=== PATIENT | female | born 1995 | race African-American/Black ===

== ENCOUNTER 2017-01-11 07:36 | Emergency (ER) | payer BC ==
[2017-01-11] MEDS ORDERED: IV NORMAL SALINE 1,000ML 1,000 ML IV ONE ×2 (08:00→08:45)
[2017-01-11] MEDS ORDERED: DICY10CA53 PO (08:06)
[2017-01-11] MEDS ORDERED: LOPE2CAP PO (08:06)
[2017-01-11] MEDS ORDERED: ONDA4TAB7 PO (08:06)
--- NOTE | 2017-01-11 08:07 | PHYS DOC ---
Past History Past Medical History: No Pertinent History Alcohol Use: None Drug Use: None Adult General Chief Complaint Chief Complaint: NAUSEA/VOMITING/DIARRHEA HPI HPI 21-year-old female presenting to the emergency department today with nausea vomiting and diarrhea for the past 3 days. She reports watery nonbloody stool. Her vomitus is nonbloody and nonbilious. She denies abdominal pain but does has general cramping sensation of her bowels. Location GI tract. Duration intermittent. No alleviating or exacerbating factors present. Otherwise healthy individual. She reports her last menstrual period during the beginning of December. She denies vaginal bleeding fevers or chills. Review of systems was negative for chest pain shortness of breath fevers chills headache. All other review of systems is negative unless otherwise noted in history of present illness. Pertinent physical exam findings showed a soft nontender abdomen. Nontender appendix or gallbladder. ED course. 21-year-old female presenting to the emergency department with nausea vomiting and diarrhea. Patient was mildly tachycardic on triage vital signs. She is given IV fluids. Likely secondary dehydration and anemia. Abdomen was soft and nontender. Blood work obtained. Urinalysis obtained. test obtained. CBC shows mild leukocytosis which is nonspecific. Hemoglobin came back low at just above 7. After further clarification with the patient she has been having chronic heavy menstrual bleeding for some time now. She has at one point been placed on iron supplementation and seemed gynecology and reports a history of fairly low hemoglobin counts. No history obtainable under my EMR this point. I had a long risk-benefit discussion with the patient and her grandmother about transfusion threshold's. Collectively, we decided to initiate oral iron supplementation and have them follow up with their primary care physician in 2 days for repeat hemoglobin testing. I gave her very specific return precautions. I offered them hospitalization for transfusion and further evaluation. We did perform a rectal exam to ensure that there was no GI bleeding involved. This was negative. The patient was then discharged home in stable condition to follow up with their primary care physician over the next 2- 3 days. They were to return if their symptoms worsened or if they were concerned for any reason. [id number] discharge instructions and return precautions were given. Patient and grandmother's questions were answered to their satisfaction. Patient and grandmother are comfortable plan. Review of Systems Review of Systems SEE ABOVE. Current Medications Current Medications Current Medications Medications (Trade) Dose Ordered Sig/Braden Start Time Stop Time Status Last Admin Dose Admin Sodium Chloride 1,000 ml @ 1,000 mls/hr 1X ONCE 01/11/17 08:00 01/11/17 08:59 Allergies Allergies Allergies Coded Allergies Type Severity Reaction Last Updated Verified No Known Drug Allergies 01/11/17 No Physical Exam Physical Exam Constitutional: Well developed, well nourished, no acute distress, non-toxic appearance. HENT: Normocephalic, atraumatic, bilateral external ears normal, oropharynx moist, no oral exudates, nose normal. [] Eyes: PERRLA, EOMI, conjunctiva normal, no discharge. Neck: Normal range of motion, no tenderness, supple, no stridor. [] Cardiovascular:Heart rate regular rhythm, no murmur Lungs & Thorax: Bilateral breath sounds clear to auscultation [] Abdomen: Soft nontender abdomen without rebound tenderness or guarding present. Negative McBurneys point. Negative Petty sign. No ecchymosis present. Skin: Warm, dry, no erythema, no rash. Back: No tenderness, no CVA tenderness. [] Extremities: No tenderness, no cyanosis, no clubbing, ROM intact, no edema. [] Neurologic: Alert and oriented X 3, normal motor function, normal sensory function, no focal deficits noted. [] Psychologic: Affect normal, judgement normal, mood normal. [] Current Patient Data Vital Signs Vital Signs Date Time Temp Pulse Resp B/P (MAP) Pulse Ox O2 Delivery O2 Flow Rate FiO2 01/11/17 07:40 98.7 118 16 98 Room Air EKG EKG [] Radiology/Procedures Radiology/Procedures [] Course & Med Decision Making Course & Med Decision Making Pertinent Labs and Imaging studies reviewed. (See chart for details) [] Dragon Disclaimer Dragon Disclaimer This chart was dictated in whole or in part using Voice Recognition software in a busy, high-work load, and often noisy Emergency Department environment. It may contain unintended and wholly unrecognized errors or omissions. Departure Departure: Impression: Primary Impression: Nausea vomiting and diarrhea Additional Impressions: Anemia Iron deficiency Disposition: 01 HOME, SELF-CARE Condition: STABLE Referrals: SUNITA GARCIA MD Patient Instructions: Diarrhea, Nausea and Vomiting Additional Instructions: Thank you for allowing us to participate in your care today. Followup with your primary care physician in 3 days if your symptoms do not improve. If you do not have a primary care provider you can ask for a list of our primary care providers. Return to the emergency department you have any new or concerning findings. This should be evaluated by the primary care physician and any necessary consulting services for continued management within a few days after discharge. Return to emergency room if you have any new or concerning symptoms including but not limited to fever, chills, nausea, vomiting, intractable pain, any new rashes, chest pain, shortness of air, uncontrolled bleeding, difficulty breathing, and/or vision loss. Scripts Ferrous Sulfate (FERROUS SULFATE) 325 Mg Tablet 1 TAB PO DAILY, #7 TAB 0 Refills Prov: JANE FREEMAN MD 01/11/17 Loperamide Hcl (LOPERAMIDE) 2 Mg Capsule 2 MG PO PRN TID Y for DIARRHEA for 2 Days, CAP Prov: JANE FREEMAN MD 01/11/17 Dicyclomine Hcl (BENTYL) 10 Mg Capsule 10 MG PO PRN TID Y for SEE COMMENTS for 3 Days, CAP Prov: JANE FREEMAN MD 01/11/17 Ondansetron Hcl (ZOFRAN) 4 Mg Tablet 1 TAB PO PRN Q6HRS Y for NAUSEA, #6 TAB Prov: JANE FREEMAN MD 01/11/17 Problem Qualifiers JANE FREEMAN MD Jan 11, 2017 08:07
[2017-01-11 08:30] LABS: PREG TEST PT QUAL NEGATIVE (NEG)
[2017-01-11 08:32] LABS: ALBUMIN 3.6 g/dL (3.4-5.0); CALCIUM 9.1 mg/dL (8.5-10.1); CREATININE 0.8 mg/dL (0.6-1.0); DIRECT BILIRUBIN 0.1 mg/dL (0.0-0.2); GFR 90.5; POTASSIUM 3.9 mmol/L (3.5-5.1); TOTAL BILIRUBIN 0.4 mg/dL (0.2-1.0); TOTAL PROTEIN 8.7 g/dL (6.4-8.2)
[2017-01-11 08:47] LABS: BASO # 0.1 x10^3/uL (0.0-0.2); BASO % 0 % (0-3); EOS # 0.3 x10^3/uL (0.0-0.7); EOS % 2 % (0-3); HEMATOCRIT 25.5 % (36.0-47.0); HEMOGLOBIN 7.3 g/dL (12.0-15.5); LYMPH # 2.9 x10^3/uL (1.0-4.8); LYMPH % 21 % (24-48); MEAN CORPUSCULAR HEMOGLOBIN 15 pg (25-35); MEAN CORPUSCULAR HGB CONC 29 g/dL (31-37); MEAN CORPUSCULAR VOLUME 53 fL (79-100); MONO # 0.7 x10^3/uL (0.0-1.1); MONO % 5 % (0-9); NEUT # 10.1 x10^3uL (1.8-7.7); NEUT % 73 % (31-73); PLATELET COUNT 466 x10^3/uL (140-400); RED BLOOD COUNT 4.82 x10^6/uL (3.50-5.40); RED CELL DISTRIBUTION WIDTH 18.6 % (11.5-14.5)
[2017-01-11 09:14] LABS: BACTERIA,URINE 0 /HPF (0-FEW); BILIRUBIN,URINE NEG (NEG); CLARITY,URINE CLEAR; COLOR,URINE YELLOW; GLUCOSE,URINE NEG (NEG); NITRITE,URINE NEG (NEG); RBC,URINE RARE /HPF (0-2); SQUAMOUS EPITHELIAL CELL,UR OCC /LPF; UROBILINOGEN,URINE 0.2 mg/dL (0.2 mg/dL); WBC,URINE OCC /HPF (0-4)
[2017-01-11 09:44] LABS: ANISOCYTOSIS MARKED; HYPOCHROMIA MOD; MICROCYTOSIS MARKED; PLATELET CLUMP PRESENT; PLT ESTIMATE INCREASED (ADEQUATE); POLYCHROMASIA MOD; SPHEROCYTES OCC
[2017-01-11 09:45] LABS: OVALOCYTES OCC; TARGET CELLS OCC; TEAR DROP CELLS FEW
[2017-01-11] MEDS ORDERED: FERR-26 PO (11:25)
[2017-01-11 12:33] LABS: FECAL OB PT NEGATIVE (NEG)
[2017-01-11 12:50] VITALS: BP 144/71
== END 2017-01-11 12:55 | disposition home or self-care (01) ==
LOC: ER 07:36
DX: R11.2 Nausea with vomiting, unspecified (principal); R19.7 Diarrhea, unspecified; D50.9 Iron deficiency anemia, unspecified
CPT/HCPCS: 36415; 80048; 80076; 81001; 81025; 82274; 83690; 84703; 85008; 85027; 96360; 99284-25; J7030

== ENCOUNTER 2020-02-19 09:16 | Emergency (ER) | payer BC, OTHER ==
[~2020-02-19] VITALS: Ht 165.1 cm; Wt 123.7 kg
[2020-02-19 09:16] VITALS: BP 145/77
[~2020-02-19 09:16] MED LIST: DICY10CA53 PO; FERR325T14 PO; LOPE2CAP PO; ONDA4TAB7 PO
--- NOTE | 2020-02-19 10:01 | PHYS DOC ---
Past History Past Medical History: Anemia Past Surgical History: No Surgical History Alcohol Use: None Drug Use: None General Adult EDM: Chief Complaint: BACK PAIN OR INJURY HPI: HPI: Patient is a 24-year-old female who presented to ER today for evaluation of low back pain after she slipped and fell at work yesterday. Patient denies any abdominal pain, no bowel or bladder incontinence, no weakness or numbness in her lower extremity. Patient says she is not sexually active so she is not . Review of Systems: Review of Systems: Constitutional: Denies fever or chills Eyes: Denies change in visual acuity HENT: Denies nasal congestion or sore throat Respiratory: Denies cough or shortness of breath Cardiovascular: Denies chest pain or edema GI: Denies abdominal pain, nausea, vomiting, bloody stools or diarrhea : Denies dysuria Musculoskeletal: Positive for low back pain Integument: Denies rash Neurologic: Denies headache, focal weakness or sensory changes Endocrine: Denies polyuria or polydipsia Lymphatic: Denies swollen glands Psychiatric: Denies depression or anxiety Heart Score: Risk Factors: Risk Factors: DM, Current or recent (<one month) smoker, HTN, HLP, family history of CAD, obesity. Risk Scores: Score 0 - 3: 2.5% MACE over next 6 weeks - Discharge Home Score 4 - 6: 20.3% MACE over next 6 weeks - Admit for Clinical Observation Score 7 - 10: 72.7% MACE over next 6 weeks - Early Invasive Strategies Allergies: Allergies: Allergies Coded Allergies Type Severity Reaction Last Updated Verified No Known Drug Allergies 01/11/17 No Physical Exam: PE: Constitutional: Well developed, well nourished, no acute distress, non-toxic appearance. [] HENT: Normocephalic, atraumatic, bilateral external ears normal, oropharynx moist, no oral exudates, nose normal. [] Eyes: PERRLA, EOMI, conjunctiva normal, no discharge. [] Neck: Normal range of motion, no tenderness, supple, no stridor. [] Cardiovascular:Heart rate regular rhythm, no murmur [] Lungs & Thorax: Bilateral breath sounds clear to auscultation [] Abdomen: Bowel sounds normal, soft, no tenderness, no masses, no pulsatile masses. [] Skin: Warm, dry, no erythema, no rash. [] Back: No tenderness, no CVA tenderness. [] Extremities: No tenderness, no cyanosis, no clubbing, ROM intact, no edema. [] Neurologic: Alert and oriented X 3, normal motor function, normal sensory function, no focal deficits noted. Good bilateral patellar reflexes Psychologic: Affect normal, judgement normal, mood normal. [] Current Patient Data: Vital Signs: Vital Signs Date Time Temp Pulse Resp B/P (MAP) Pulse Ox O2 Delivery O2 Flow Rate FiO2 02/19/20 09:16 98.6 89 16 145/77 (99) 98 Room Air EKG: EKG: [] Radiology/Procedures: Radiology/Procedures: [][place] [id number] IMAGING REPORT Signed PATIENT: MAMIE CLARKACCOUNT: [id number] : 1995 LOCATION: ER AGE: 24 SEX: F EXAM STATUS: REG ER ORD. PHYSICIAN: SUNITA MARCUS DO REASON: lower back pain PROCEDURE: LUMBAR SPINE 2-3V Lumbar spine AP and lateral views 02/19/2020. Reason for exam: Low back pain. No history of trauma is given. Alignment is normal. There is no loss of vertebral body height or other evidence for fracture. Intervertebral discs are not narrowed. No destructive process is seen. IMPRESSION: No apparent abnormality in the lumbar spine. Electronically signed by: Jazmín Jacobo Jr., MD (02/19/2020 10:17 AM) [id number] DICTATED AND SIGNED BY: JAZMÍN JACOBO Jr, MD DATE: 02/19/20 1017 CC: CORI GRAVES MD; SUNITA MARCUS DO ~ Course & Med Decision Making: Course & Med Decision Making Pertinent Labs and Imaging studies reviewed. (See chart for details) Patient is a 24-year-old female who was evaluated in the ER due to low back pain after she slipped and fell at work. X-ray her lumbar spine did not show any acute problem. Patient will be discharged home, she will need to follow-up with her family doctor for reevaluation. Dragon Disclaimer: Dragon Disclaimer: This electronic medical record was generated, in whole or in part, using a voice recognition dictation system. Departure Departure: Impression: Primary Impression: Sprain lumbar region Additional Impression: Low back strain Disposition: HOME/RESIDENCE PRIOR TO ADM Condition: STABLE Referrals: CORI GRAVES MD (PCP) please call your family doctor for follow up as needed. Patient Instructions: Low Back Strain with [facility] Additional Instructions: Thank you for visiting our Emergency Department. We appreciate you trusting us with your care. If any additional problems come up don't hesitate to return to visit us. Please follow up with your primary care provider so they can plan additional care if needed and know about the problem that you had. If symptoms worsen come back to the Emergency Department. Any concerning symptoms that start such as chest pain, shortness of air, weakness or numbness on one side of the body, running high fevers or any other concerning symptoms return to the ER. Justification of Admission: Justification of Admission: Justification of Admission Dx: N/A SUNITA MARCUS DO Feb 19, 2020 10:01
--- NOTE | 2020-02-19 10:20 | RAD ---
Lumbar spine AP and lateral views 02/19/2020. Reason for exam: Low back pain. No history of trauma is given. Alignment is normal. There is no loss of vertebral body height or other evidence for fracture. Intervertebral discs are not narrowed. No destructive process is seen. IMPRESSION: No apparent abnormality in the lumbar spine. Electronically signed by: Ryan Jacobo Jr., MD (02/19/2020 10:17 AM) [id number]
== END 2020-02-19 10:35 | disposition home or self-care (01) ==
LOC: ER 09:16
DX: S33.5XXA Sprain of ligaments of lumbar spine, initial encounter (principal); S39.012A Strain of muscle, fascia and tendon of lower back, initial encounter; Z86.2 Personal history of diseases of the blood and blood-forming organs and certain disorders involving the immune mechanism; W01.0XXA Fall on same level from slipping, tripping and stumbling without subsequent striking against object, initial encounter; Y93.89 Activity, other specified; Y92.89 Other specified places as the place of occurrence of the external cause; Y99.0 Civilian activity done for income or pay
CPT/HCPCS: 72100; 99283

== ENCOUNTER 2021-03-23 23:43 | Emergency (ER) | payer OTHER, BC ==
[~2021-03-23] VITALS: Ht 160 cm; Wt 135.8 kg
[2021-03-23 23:51] VITALS: BP 134/70
--- NOTE | 2021-03-24 00:11 | PHYS DOC ---
Past History Past Medical History: Anemia Past Surgical History: Appendectomy Alcohol Use: None Drug Use: None General Adult EDM: Chief Complaint: FINGER INJURY HPI: HPI: ".. I picked up hot cup soup... and it spaashed against my thumb.. on Lt. it was about 5:30..." it s got a blister now... " Patient is a 25 year old female who presents with above hx and complaint 1 cm size blister to left thumb tip. Distal neurovascular intact. Patient up-to-date with vaccinations. No recent travel. No sick ill contacts. Normally healthy. Patient is right-hand dominant. Patient works at the [employer] at the [employer]. Review of Systems: Review of Systems: Constitutional: Denies fever or chills Eyes: Denies change in visual acuity HENT: Denies nasal congestion or sore throat Respiratory: Denies cough or shortness of breath Cardiovascular: Denies chest pain or edema GI: Denies abdominal pain, nausea, vomiting, bloody stools or diarrhea : Denies dysuria Musculoskeletal: Denies back pain or joint pain Integument: Complains of scalding 1 cm burn left tip thumb Neurologic: Denies headache, focal weakness or sensory changes Endocrine: Denies polyuria or polydipsia Lymphatic: Denies swollen glands Psychiatric: Denies depression or anxiety Family History: Family History: Noncontributory to presentation. Current Medications: Current Meds: Current Medications Medications (Trade) Dose Ordered Sig/Braden Start Time Stop Time Status Last Admin Dose Admin Diphtheria/ Pertussis/Tetanus Vacc (ADACEL TDap SYRINGE) 0.5 ml ONCE ONCE 03/24/21 00:30 03/24/21 00:31 Allergies: Allergies: Allergies Coded Allergies Type Severity Reaction Last Updated Verified No Known Drug Allergies 01/11/17 No Physical Exam: PE: Constitutional: Well developed, well nourished, no acute distress, non-toxic ap pearance. [] HENT: Normocephalic, atraumatic, bilateral external ears normal, oropharynx moist, no oral exudates, nose normal. [] Eyes: PERRLA, EOMI, conjunctiva normal, no discharge. [] Neck: Normal range of motion, no tenderness, supple, no stridor. [] Cardiovascular:Heart rate regular rhythm, no murmur [] Lungs & Thorax: Bilateral breath sounds equal at apex on auscultation [] Abdomen: Bowel sounds normal, soft, no tenderness, no masses, no pulsatile masses. Obese. Skin: Warm, dry, no erythema, no rash. Second-degree burn left thumb tip Back: No tenderness, no CVA tenderness. [] Extremities: No tenderness, no cyanosis, no clubbing, ROM intact, no edema. [] Neurologic: Alert and oriented X 3, normal motor function, normal sensory function, no focal deficits noted. [] Psychologic: Affect anxious, judgement normal, mood normal. [] Current Patient Data: Vital Signs: Vital Signs Date Time Temp Pulse Resp B/P (MAP) Pulse Ox O2 Delivery O2 Flow Rate FiO2 03/23/21 23:51 98.5 98 18 134/70 98 EKG: EKG: [] Radiology/Procedures: Radiology/Procedures: [] Heart Score: C/O Chest Pain: N/A Risk Factors: Risk Factors: DM, Current or recent (<one month) smoker, HTN, HLP, family history of CAD, obesity. Risk Scores: Score 0 - 3: 2.5% MACE over next 6 weeks - Discharge Home Score 4 - 6: 20.3% MACE over next 6 weeks - Admit for Clinical Observation Score 7 - 10: 72.7% MACE over next 6 weeks - Early Invasive Strategies Course & Med Decision Making: Course & Med Decision Making Pertinent Labs and Imaging studies reviewed. (See chart for details) Patient to keep the blister covered. Polysporin 4 times a day. Tylenol and ibuprofen for pain. Follow-up primary care. Follow-up Workmen's Comp. Return if any concerns. 1. Lt. Thumb 2nd degree burn 1 x1 cm [] Dragon Disclaimer: Dragon Disclaimer: This electronic medical record was generated, in whole or in part, using a voice recognition dictation system. Departure Departure: Referrals: CORI GRAVES MD (PCP) Candis Disclaimer This chart was dictated in whole or in part using Voice Recognition software in a busy, high-work load, and often noisy Emergency Department environment. It may contain unintended and wholly unrecognized errors or omissions. SARA MARKHAM MD Mar 24, 2021 00:11
[2021-03-24] MEDS ORDERED: DIPH,PERTUSS(ACELL),TET VAC/PF 0.5 ML SYRINGE. VAX IM ONE (00:30)
[2021-03-24] MEDS ORDERED: MUPIROCIN 2% TOPICAL OINTMENT 22GM TUBE. TP ONE (01:00)
== END 2021-03-24 00:40 | disposition home or self-care (01) ==
LOC: ER 23:43
DX: T23.212A Burn of second degree of left thumb (nail), initial encounter (principal); Z86.2 Personal history of diseases of the blood and blood-forming organs and certain disorders involving the immune mechanism; X10.0XXA Contact with hot drinks, initial encounter; Y93.89 Activity, other specified; Y92.89 Other specified places as the place of occurrence of the external cause; Y99.8 Other external cause status
CPT/HCPCS: 90471; 90715; 99283

== ENCOUNTER 2021-04-24 15:34 | Emergency (ER) | payer BC, OTHER ==
[~2021-04-24] VITALS: Ht 160 cm; Wt 125.5 kg
--- NOTE | 2021-04-24 15:57 | PHYS DOC ---
Past History Past Medical History: Anemia (SEMAJ FLORES APRN) Past Surgical History: Appendectomy (SEMAJ FLORES APRN) Alcohol Use: Occasionally Drug Use: None (SEMAJ FLORES APRN) General Adult EDM: Chief Complaint: COUGH HPI: HPI: Patient is a 25-year-old female who presents to the ER for shortness of breath and cough. Patient was diagnosed with COVID-19 2 weeks ago. She reports that the cough is severe that at times it does cause vomiting. Patient is also reporting intermittent fevers. She denies any current vomiting, chest pain, loss of taste or smell. Patient's heart rate slightly elevated at 125. She is afebrile at this time. O2 saturations are 92 to 93% on room air. (SEMAJ FLORES APRN) Review of Systems: Review of Systems: 14 body systems of the review of systems have been reviewed. See HPI for pertinent positive and negative responses, otherwise all other systems are negative, nonpertinent or noncontributory (SEMAJ FLORES APRN) Current Medications: Current Meds: Current Medications Medications (Trade) Dose Ordered Sig/Braden Start Time Stop Time Status Last Admin Dose Admin Dexamethasone Sodium Phosphate (Decadron) 10 mg 1X ONCE 04/24/21 16:00 04/24/21 16:01 UNV Sodium Chloride 1,000 ml @ 1,000 mls/hr 1X ONCE 04/24/21 16:00 04/24/21 16:59 UNV (SEMAJ FLORES APRN) Allergies: Allergies: Allergies Coded Allergies Type Severity Reaction Last Updated Verified No Known Drug Allergies 01/11/17 No (SEMAJ FLORES APRN) Physical Exam: PE: Constitutional: Well developed, well nourished, no acute distress, non-toxic appearance. [] HENT: Normocephalic, atraumatic, bilateral external ears normal, oropharynx moist, no oral exudates, nose normal. [] Eyes: PERRL, EOMI, conjunctiva normal, no discharge. [] Neck: Normal range of motion, no stridor Cardiovascular:Heart rate regular rhythm, no murmur [] Lungs & Thorax: Bilateral breath sounds clear to auscultation [] Abdomen: Bowel sounds normal, soft, no tenderness, obese, no masses, no pulsatile masses. [] Skin: Warm, dry, no erythema, no rash. [] Back: Normal range of motion Extremities: No tenderness, no cyanosis, no clubbing, ROM intact, no edema. [] Neurologic: Alert and oriented X 3, normal motor function, normal sensory function, no focal deficits noted. [] Psychologic: Affect normal, judgement normal, mood normal. [] (SEMAJ FLORES APRN) Current Patient Data: Labs: Laboratory Tests Test 04/24/21 16:25 White Blood Count 6.5 x10^3/uL Red Blood Count 5.27 x10^6/uL Hemoglobin 11.0 g/dL Hematocrit 35.2 % Mean Corpuscular Volume 67 fL Mean Corpuscular Hemoglobin 21 pg Mean Corpuscular Hemoglobin Concent 31 g/dL Red Cell Distribution Width 17.2 % Platelet Count 306 x10^3/uL Neutrophils (%) (Auto) 58 % Lymphocytes (%) (Auto) 27 % Monocytes (%) (Auto) 10 % Eosinophils (%) (Auto) 3 % Basophils (%) (Auto) 2 % Neutrophils # (Auto) 3.8 x10^3uL Lymphocytes # (Auto) 1.7 x10^3/uL Monocytes # (Auto) 0.6 x10^3/uL Eosinophils # (Auto) 0.2 x10^3/uL Basophils # (Auto) 0.1 x10^3/uL Platelet Estimate Increased Platelet Clumps, EDTA Large Platelets Occ Giant Platelets Occ Sodium Level 137 mmol/L Potassium Level 3.4 mmol/L Chloride Level 98 mmol/L Carbon Dioxide Level 27 mmol/L Anion Gap 12 Blood Urea Nitrogen 9 mg/dL Creatinine 0.7 mg/dL Estimated GFR (Cockcroft-Gault) 123.4 BUN/Creatinine Ratio 13 Glucose Level 160 mg/dL Calcium Level 8.9 mg/dL Total Bilirubin 0.4 mg/dL Aspartate Amino Transf (AST/SGOT) 41 U/L Alanine Aminotransferase (ALT/SGPT) 33 U/L Alkaline Phosphatase 64 U/L Troponin I Quantitative < 0.017 ng/mL Total Protein 7.7 g/dL Albumin 2.7 g/dL Albumin/Globulin Ratio 0.5 Current Medications Medications (Trade) Dose Ordered Sig/Braden Route PRN Reason Start Time Stop Time Status Last Admin Dose Admin Sodium Chloride 1,000 ml @ 1,000 mls/hr 1X ONCE IV 04/24/21 16:00 04/24/21 16:59 DC 04/24/21 16:14 Dexamethasone Sodium Phosphate (Decadron) 10 mg 1X ONCE IVP 04/24/21 16:00 04/24/21 16:11 DC 04/24/21 16:14 Ceftriaxone Sodium 1 gm/ Sodium Chloride 50 ml @ 100 mls/hr 1X ONCE IV 04/24/21 17:00 04/24/21 17:29 DC 04/24/21 17:25 Azithromycin (Zithromax) 500 mg 1X ONCE PO 04/24/21 17:00 04/24/21 17:03 DC 04/24/21 17:26 Potassium Chloride (Klor-Con) 20 meq 1X ONCE PO 04/24/21 17:00 04/24/21 17:03 DC 04/24/21 17:26 Iohexol (Omnipaque 350 Mg/ml) 100 ml 1X ONCE IV 04/24/21 17:15 04/24/21 17:17 DC 04/24/21 17:39 Ondansetron HCl (Zofran) 4 mg 1X ONCE IVP 04/24/21 17:30 04/24/21 17:31 DC 04/24/21 17:25 Sodium Chloride 50 ml @ As Directed STK-MED ONCE .ROUTE 04/24/21 17:18 04/24/21 17:18 DC Ondansetron HCl (Zofran) 4 mg STK-MED ONCE .ROUTE 04/24/21 17:18 04/24/21 17:18 DC Ceftriaxone Sodium (Rocephin) 1 gm STK-MED ONCE .ROUTE 04/24/21 17:18 04/24/21 17:18 DC (SEMAJ FLORES APRN) EKG: EKG: EKG performed by ER staff at 1601 shows sinus tachycardia with a rate of 124, no STEMI read by Dr. Matute at 1611 [] (SEMAJ FLORES APRN) Radiology/Procedures: Radiology/Procedures: []PROCEDURE: CT ANGIOGRAPHY CHEST Examination: CT angiography chest with IV contrast HISTORY: History of shortness of breath, tachycardia, covid COMPARISON: None TECHNIQUE: Axial CT and radiographic images of chest were performed with IV contrast. Coronal and sagittal 3-D MIP reformats are performed Exposure: One or more of the following individualized dose reduction techniques were utilized for this examination: 1. Automated exposure control 2. Adjustment of the mA and/or kV according to patient size 3. Use of iterative reconstruction technique FINDINGS: The visualized thyroid gland grossly appears unremarkable. The central airways are patent. Few enlarged mediastinal lymph nodes identified. The caliber of the aorta grossly appears unremarkable. There is no evidence of filling defect identified in the main pulmonary arterial trunk and right and left main pulmonary arteries. Evaluation the distal branches of the pulmonary arteries is limited. There are numerous groundglass patchy airspace opacities identified throughout the bilateral lungs. Diffuse decreased attenuation noted in the liver likely hepatic steatosis. The spleen, adrenals grossly appears unremarkable No evidence of lytic bony destructive lesion. IMPRESSION: 1. No evidence of central pulmonary embolism. Evaluation of the distal branches of the pulmonary arteries is limited. 2. Numerous groundglass patchy airspace opacities identified throughout the bilateral lungs likely viral or covid pneumonia. Follow-up to resolution. 3. Few enlarged mediastinal lymph nodes likely reactive. 4. Hepatic steatosis. Electronically signed by: Leonides Philip MD (04/24/2021 5:53 PM) [id number] DICTATED AND SIGNED BY: LEONIDES PHILIP MD DATE: 04/24/21 1745 CC: CAMILLE MATUTE DO; CORI GRAVES MD; SEMAJ FLORES APRN ~MTH0 0 PROCEDURE: PORTABLE CHEST 1V Single AP view of the chest. Comparison: None. Indication: Shortness of air with Covid pneumonia Findings: The heart is not enlarged. There is no pneumothorax or effusion. Bilateral interstitial opacities are identified. Impression: 1. Bilateral interstitial opacities consistent with stated history of Covid pneumonia Electronically signed by: Mauricio Hernandez MD (04/24/2021 4:43 PM) [facility] DICTATED AND SIGNED BY: MAURICIO HERNANDEZ MD DATE: 04/24/21 1643 CC: CORI GRAVES MD; SEMAJ FLORES APRN ~MTH0 0 (SEMAJ FLORES APRN) Heart Score: C/O Chest Pain: No Risk Factors: Risk Factors: DM, Current or recent (<one month) smoker, HTN, HLP, family history of CAD, obesity. Risk Scores: Score 0 - 3: 2.5% MACE over next 6 weeks - Discharge Home Score 4 - 6: 20.3% MACE over next 6 weeks - Admit for Clinical Observation Score 7 - 10: 72.7% MACE over next 6 weeks - Early Invasive Strategies (SEMAJ FLORES APRN) Course & Med Decision Making: Course & Med Decision Making Pertinent Labs and Imaging studies reviewed. (See chart for details) [] Patient is a 25-year-old female who is Covid positive coming into the ER for shortness of breath and cough. She was noted to be slightly tachycardic and her O2 saturations were 92 to 93% on room air. Work-up in the ER consisted of blood work, chest x-ray, EKG. Patient treated with fluids and steroid. Patient CBC was unremarkable. Her potassium was 3.4 and this was replaced in the ER. Her chest x-ray showed bilateral interstitial opacities. We performed a CTA scan due to patient's tachycardia and it showed no pulmonary embolism but groundglass opacities consistent with Covid pneumonia. Patient treated with Rocephin and azithromycin in the ER. Patient's heart rate has decreased to 106. Her O2 sat is 96% on room air. Patient advised to take Tylenol/ibuprofen for any pain or fevers. Increase fluids. Follow-up with primary care provider tomorrow. I discussed with patient all findings and diagnostic testing as well as the need to follow-up with PCP for further evaluation and treatment or return to the ER if any new or worsening symptoms. Strict return precautions were also discussed at length. Patient voiced understanding and agreement with the plan. Patient is hemodynamically stable at the time of disposition. (SEMAJ FLORES APRN) Course & Med Decision Making I was the Attending physician on the above date of service of this patient. This patient was evaluated, examined, treated, and dispositioned from the emergency department by the mid-level practitioner. Although I was working at the time , no assistance was requested. Electronically signed, Camille Matute DO (CAMILLE MATUTE DO) Candis Disclaimer: Candis Disclaimer: This electronic medical record was generated, in whole or in part, using a voice recognition dictation system. (SEMAJ FLORES APRN) Departure Departure: Impression: Primary Impression: Pneumonia due to COVID-19 virus Disposition: HOME / SELF CARE / HOMELESS Condition: GOOD Referrals: CORI GRAVES MD (PCP) Patient Instructions: Pneumonia, Adult Additional Instructions: You are seen in the ER for cough and shortness of breath with COVID-19 infection. You were noted to have pneumonia. This was treated in the ER with antibiotics. You are also given fluids and steroids in the ER. You can take Tyl enol/ibuprofen at home for pain or fevers. Increase your fluids and rest. Please follow-up with your primary care provider tomorrow regarding your ER visit. If you develop chest pain, shortness of breath, high fevers refractory to treatment, intractable nausea or vomiting or any new or worsening concerns please return to the ER. EMERGENCY DEPARTMENT GENERAL DISCHARGE INSTRUCTIONS Thank you for coming to [facility] (ED) today and trusting us with you care. We trust that you had a positivie experience in our Emergency Department. If you wish to speak to the department management, you may call the director at [phone]. YOUR FOLLOW UP INSTRUCTIONS ARE FOLLOWS: 1. Do you have a private Doctor? If you do not have a private doctor, please ask for a resource list of physicians or clinics that may be able to assist you with follow up care. 2. The Emergency Physician has interpreted your x-rays. The X-Ray specialist will also review them. If there is a change in the findings, you will be notified in 48 hours when at all possible. 3. A lab test or culture has been done, your results will be reviewed and you will be notified if you need a change in treatment. ADDITIONAL INSTRUCTIONS AND INFORMATION: 1. Your care today has been supervised by a physician who is specially trained in emergency care. Many problems require more than one evaluation for a complete diagnosis and treatment. We recommend that you schedule your follow up appointment as recommended to ensure complete treatment of you illness or injury. If you are unable to obtain follow up care and continue to have a problem, or if your condition worsens, we recommend that you return to the ED. 2. We are not able to safely determine your condition over the phone nor are we able to give sound medical advice over the phone. For these safety reasons, if you call for medical advice we will ask you to come to the ED for further evaluation. 3. If you have any questions regarding these discharge instructions please call the ED at [phone]. SAFETY INFORMATION: In the interest of safety, wellness, and injury prevention; we encourage you to wear your sealbelt, if you smoke; quite smoking, and we encourage family to use a protective helmet for bicycling and other sporting events that present an increased risk for head injury. IF YOUR SYMPTOMS WORSEN OR NEW SYMPTOMS DEVELOP, OR YOU HAVE CONCERNS ABOUT YOUR CONDITION; OR IF YOUR CONDITION WORSENS WHILE YOU ARE WAITING FOR YOUR FOLLOW UP APPOINTMENT; EITHER CONTACT YOUR PRIMARY CARE DOCTOR, THE PHYSICIAN WHOSE NAME AND NUMBER YOU WERE GIVEN, OR RETURN TO THE ED IMMEDIATELY. Scripts Benzonatate (BENZONATATE) 100 Mg Capsule 1 CAP PO TID for cough for 7 Days, #21 CAP 0 Refills Prov: SEMAJ FLORES APRN 04/24/21 SEMAJ FLORES APRN Apr 24, 2021 15:57 CAMILLE MATUTE DO Apr 25, 2021 06:22
[2021-04-24] MEDS: IV NORMAL SALINE 1,000ML 1,000 ML IV ONE (16:14)
[2021-04-24] MEDS: DEXAMETHASONE SOD PHOS 10 MG/ML VIAL. IVP ONE (16:14)
--- NOTE | 2021-04-24 16:32 | EKG ---
[address] [address] Test Date: 2021-04-24 Test Time: 16:01:28 Pat Name: MAMIE CLARK Department: Room: Gender: F Life Advisor: [place] : [id number] Requested By: SEMAJ FLORES Order Number: [id number] Reading MD: Measurements Intervals Ruso Rate: 124 P: 34 OK: 148 QRS: 50 QRSD: 94 T: 13 QT: 314 QTc: 455 Interpretive Statements SINUS TACHYCARDIA OTHERWISE NORMAL ECG RI6.02 No previous ECG available for comparison
[2021-04-24 16:43] LABS: BASO # 0.1 x10^3/uL (0.0-0.2); BASO % 2 % (0-3); EOS # 0.2 x10^3/uL (0.0-0.7); EOS % 3 % (0-3); HEMATOCRIT 35.2 % (36.0-47.0); LYMPH # 1.7 x10^3/uL (1.0-4.8); LYMPH % 27 % (24-48); MEAN CORPUSCULAR HEMOGLOBIN 21 pg (25-35); MEAN CORPUSCULAR HGB CONC 31 g/dL (31-37); MEAN CORPUSCULAR VOLUME 67 fL (79-100); MONO # 0.6 x10^3/uL (0.0-1.1); MONO % 10 % (0-9); NEUT # 3.8 x10^3uL (1.8-7.7); NEUT % 58 % (31-73); PLATELET COUNT 306 x10^3/uL (140-400); RED BLOOD COUNT 5.27 x10^6/uL (3.50-5.40); RED CELL DISTRIBUTION WIDTH 17.2 % (11.5-14.5); WHITE BLOOD COUNT 6.5 x10^3/uL (4.0-11.0)
--- NOTE | 2021-04-24 16:46 | RAD ---
Single AP view of the chest. Comparison: None. Indication: Shortness of air with Covid pneumonia Findings: The heart is not enlarged. There is no pneumothorax or effusion. Bilateral interstitial opacities ar e identified. Impression: 1. Bilateral interstitial opacities consistent with stated history of Covid pneumonia Electronically signed by: Mauricio Hernandez MD (04/24/2021 4:43 PM) [facility]
[2021-04-24 16:49] LABS: CALCIUM 8.9 mg/dL (8.5-10.1); CREATININE 0.7 mg/dL (0.6-1.0); GFR 123.4; POTASSIUM 3.4 mmol/L (3.5-5.1)
[2021-04-24 16:55] LABS: ALBUMIN 2.7 g/dL (3.4-5.0); ALBUMIN/GLOBULIN RATIO 0.5 (1.0-1.7); TOTAL BILIRUBIN 0.4 mg/dL (0.2-1.0); TOTAL PROTEIN 7.7 g/dL (6.4-8.2)
[2021-04-24 17:10] LABS: PLT ESTIMATE INCREASED (ADEQUATE)
[2021-04-24] MEDS ORDERED: ONDANSETRON PF 4 MG/2 ML VIAL. ONE (17:18)
[2021-04-24] MEDS ORDERED: IV NORMAL SALINE 50ML 50 ML ONE (17:18)
[2021-04-24] MEDS ORDERED: cefTRIAXone SODIUM 1 GM VIAL ONE (17:18)
[2021-04-24] MEDS: ONDANSETRON PF 4 MG/2 ML VIAL. IVP ONE (17:25)
[2021-04-24] MEDS: POTASSIUM CHLORIDE 20 MEQ TABLET.ER. PO ONE (17:26)
[2021-04-24] MEDS: AZITHROMYCIN 250 MG TABLET. PO ONE (17:26)
[2021-04-24 17:28] VITALS: BP 119/71
[2021-04-24] MEDS: IOHEXOL 350 MG/ML 100 ML VIAL. IV ONE (17:39)
--- NOTE | 2021-04-24 17:56 | RAD ---
Examination: CT angiography chest with IV contrast HISTORY: History of shortness of breath, tachycardia, covid COMPARISON: None TECHNIQUE: Axial CT and radiographic images of chest were performed with IV contrast. Coronal and sag ittal 3-D MIP reformats are performed Exposure: One or more of the following individualized dose reduction techniques were utilized for thi s examination: 1. Automated exposure control 2. Adjustment of the mA and/or kV according to patient size 3. Use of iterative reconstruction technique FINDINGS: The visualized thyroid gland grossly appears unremarkable. The central airways are patent. Few enlarg ed mediastinal lymph nodes identified. The caliber of the aorta grossly appears unremarkable. There i s no evidence of filling defect identified in the main pulmonary arterial trunk and right and left ma in pulmonary arteries. Evaluation the distal branches of the pulmonary arteries is limited. There are numerous groundglass patchy airspace opacities identified throughout the bilateral lungs. Diffuse de creased attenuation noted in the liver likely hepatic steatosis. The spleen, adrenals grossly appears unremarkable No evidence of lytic bony destructive lesion. IMPRESSION: 1. No evidence of central pulmonary embolism. Evaluation of the distal branches of the pulmonary art eries is limited. 2. Numerous groundglass patchy airspace opacities identified throughout the bilateral lungs likely v iral or covid pneumonia. Follow-up to resolution. 3. Few enlarged mediastinal lymph nodes likely reactive. 4. Hepatic steatosis. Electronically signed by: Leonides Philip MD (04/24/2021 5:53 PM) [id number]
[2021-04-24] MEDS ORDERED: BENZ-8 PO (18:14)
== END 2021-04-24 18:17 | disposition home or self-care (01) ==
LOC: ER 15:34
DX: U07.1 COVID-19 (principal); J12.82 Pneumonia due to coronavirus disease 2019; Z86.2 Personal history of diseases of the blood and blood-forming organs and certain disorders involving the immune mechanism; Z90.89 Acquired absence of other organs
CPT/HCPCS: 36415; 71045; 71275; 80053; 84484; 85025; 93005; 96361; 96365; 96375; 99285; J0696; J1100; J2405; J7030; Q9967